=== PATIENT | female | born 1955 | race Caucasian/White ===

== ENCOUNTER → 2017-02-19 | Outpatient (CLI) | payer OTHER ==
--- NOTE | ~2017-02-19 | MY29 ---
[facility] A Service of [facility] RADIOLOGY TEXT RESULTS PATIENT: MILIND WAN LOCATION: [facility] : 53 UNIT #: [id number] AGE: [address]: Deb Brown SEX: F ORDER DR: [id number] [facility] [address] [place], [place] [address] [id number] O MR#: [id number] Acc #: [id number] NAME: MILIND WAN : 1955 SEX: F STUDY DATE/TIME: 02/19/2017 9:55 UNIT: [facility] ROOM: STUDY DESCRIPTION: MY PRAKASH SCREENING W/ CAD BILAT Attending Physician: Deb Brown A.P.R.N. Ordering Physician: Deb Brown A.P.R.N. Primary Care Physician: Sabi Hidalgo M.D. MEDICAL IMAGING REPORT This report is preliminary unless electronic signature is present EXAM Digital screening mammogram 02/19/2017 HISTORY 61-year-old woman no risk elevation. Annual screen. COMPARISON Mammograms 09/16/2007, 10/29/2008, 12/18/2014, 02/14/2016. FINDINGS Digital imaging of each breast was completed utilizing a two-view examination of each breast in craniocaudal and mediolateral-oblique projections. Review and interpretation of digital mammograms include a second review in conjunction with FDA-approved CAD device. There is a normal parenchymal presentation bilaterally consistent with the patient's age. There are no breast masses imaged and no parenchymal asymmetry is visualized. There are no suspicious microcalcifications and I see no focal architectural disturbance. IMPRESSION Negative screening digital mammogram. One-year followup recommended. Patients over the age of 40 are entered into a reminder system with target due date for the next mammogram. A result letter will also be sent to the patient. BIRADS: 1 Negative Dictated by... Aguila Vaz M.D. [facility] A Service [facility] RADIOLOGY TEXT RESULTS PATIENT: MILIND WAN LOCATION: [facility] : 53 UNIT #: [id number] AGE: [address]: Deb Brown SEX: F ORDER DR: THIS IS AN ELECTRONICALLY VERIFIED REPORT Aguila Vaz M.D. at 02/19/2017 3:33 PM Gayla TD: 02/19/2017 13:23 JOB #: [id number] MEDICAL IMAGING REPORT Page 1 of 1 COPY
== END | disposition home or self-care (01) ==
LOC: CWCC 09:34
DX: Z12.31 Encounter for screening mammogram for malignant neoplasm of breast (principal)
CPT/HCPCS: G0202